=== PATIENT | female | born 2000 | race Caucasian/White ===

== ENCOUNTER 2023-10-26 12:39 | Emergency (ER) | payer OTHER ==
[~2023-10-26] VITALS: Ht 160 cm; Wt 53.2 kg
[2023-10-26] MEDS ORDERED: Iohexol 300 - 100 ML VIAL IV ONE (13:03)
[2023-10-26] MEDS ORDERED: NS 100 ML IV SCH (13:03)
[2023-10-26 13:04] LABS: HEMATOCRIT 41.9 % (37.0-47.0); HEMOGLOBIN 14.3 g/dl (12.5-16.0); MEAN CELL VOLUME 93 fl (80.0-100.0); MEAN CORPUSCULAR HEMOGLOBIN 32 pg (27-31); MEAN CORPUSCULAR HGB CONC 34 g/dl (33.0-37.0); MEAN PLATELET VOLUME 10.4 fl (7.4-10.4); PLATELET COUNT 251 K/mm3 (130-400); RED BLOOD COUNT 4.49 M/mm3 (4.10-5.30); REDCELL DISTRIBUTION WIDTH-CV 11.9 % (11.5-14.5)
[2023-10-26 13:13] VITALS: TEMP 98.8
[2023-10-26 13:19] LABS: ALBUMIN 4.5 g/dL (3.5-5.0); BILIRUBIN,TOTAL 0.4 mg/dL (0.2-1.2); CALCIUM 9.9 mg/dL (8.4-10.2); CREATININE, serum 0.77 mg/dL (0.57-1.11); POTASSIUM 4.5 mEq/L (3.5-4.5); TOTAL PROTEIN 7.7 g/dl (6.2-8.1)
[2023-10-26] MEDS ORDERED: Acetaminophen 500 MG TAB PO ONE (13:30)
[2023-10-26] MEDS ORDERED: Morphine 4 MG/ML VIAL IV ONE (13:30)
[2023-10-26] MEDS ORDERED: ROBAXIN 50500 MG/TAB PO (14:03)
[2023-10-26 14:22] VITALS: BP 119/73; PULSE 86
== END 2023-10-26 14:22 | disposition home or self-care (01) ==
LOC: COL.ER 12:39
PROVIDERS: Emergency Medicine
DX: S06.9X1A Unspecified intracranial injury with loss of consciousness of 30 minutes or less, initial encounter (principal); S16.1XXA Strain of muscle, fascia and tendon at neck level, initial encounter; S80.212A Abrasion, left knee, initial encounter; R07.89 Other chest pain; V43.52XA Car driver injured in collision with other type car in traffic accident, initial encounter; Y92.410 Unspecified street and highway as the place of occurrence of the external cause
CPT/HCPCS: J2270; Q9967